=== PATIENT | female | born 1960 | race Caucasian/White ===

== ENCOUNTER 2018-08-07 17:06 | Emergency (ER) | payer MEDICAID ==
[~2018-08-07] VITALS: Ht 167.6 cm; Wt 58.0 kg
[~2018-08-07 17:06] MED LIST: BAC10T PO; CLON-527 PO; DIAZ5TAB PO; DIPH-186 PO; FLO0.4C PO; FLUO20CA39 PO; HYDR-4383 PO; NAPR-1154 PO; NITR100C6 PO; ONDA4TAB6 PO; OXYB5TAB11 PO; PHEN-716 PO; PHEN-786 PO; PHEN95TA29 PO; POLY119P2 PO; TAMS0.4C32 PO; TRAM200T4 PO; TRAM50TA2 PO
[2018-08-07 17:12] VITALS: BP 102/76
[2018-08-07] MEDS ORDERED: LIDOcaine 1.5% w/epinephrine 1:200,000 5ml ampul IJ ONE (17:45)
[2018-08-07] MEDS ORDERED: TETanus/Pertussis (Acell)/Diphther VAC/PF (Tdap-Adult) 0.5ml syringe IM ONE (17:45)
[2018-08-07] MEDS ORDERED: LIDOcaine 1% w/epiNEPHrine 1:200,000 30ml vial IJ ONE (18:00)
[2018-08-07] MEDS ORDERED: CEPH-572 PO (18:23)
[2018-08-07] MEDS ORDERED: SULF1TAB49 PO (18:23)
== END 2018-08-07 18:31 | disposition home or self-care (01) ==
LOC: ER 17:07
DX: L03.012 Cellulitis of left finger (principal); G89.29 Other chronic pain; Z79.899 Other long term (current) drug therapy; Z90.710 Acquired absence of both cervix and uterus
CPT/HCPCS: 10060; 90471; 90715; 99283; J3490

== ENCOUNTER 2020-06-17 17:50 | Emergency (ER) | payer MEDICAID ==
[~2020-06-17] VITALS: Ht 167.6 cm; Wt 61.4 kg
[~2020-06-17 17:50] MED LIST changes: -OXYB5TAB11 PO; +OXYB5TAB16 PO
[2020-06-17 18:01] VITALS: BP 126/74
[2020-06-17 18:17] LABS: CLARITY,URINE SLIGHTLY CLOUDY (Clear); COLOR,URINE YELLOW (Yellow); GLUCOSE, URINE NEGATIVE (Neg); KETONES,URINE NEGATIVE (Neg); LEUKOCYTE ESTERASE ,URINE TRACE (Neg); NITRITES, URINE NEGATIVE (Neg); OCCULT BLOOD,URINE MODERATE (Neg); PROTEIN,URINE NEGATIVE (Neg); UROBILINOGEN,URINE 0.2 E.U/dL (0.2-1.0)
[2020-06-17 18:18] LABS: UA COLLECTION TYPE CLN CATCH MIDSTREAM
[2020-06-17 18:24] LABS: MUCUS STRANDS FEW /LPF (Neg); SQUAMOUS EPITHELIAL CELL,UR MODERATE /LPF (FEW)
[2020-06-17 18:25] LABS: BACTERIA,URINE 1+ /HPF (Neg)
[2020-06-17 18:26] LABS: WBC,URINE 0-4 /HPF (0-4)
== END 2020-06-17 20:27 | disposition left against medical advice (07) ==
LOC: ER 17:51
DX: N30.10 Interstitial cystitis (chronic) without hematuria (principal); G89.29 Other chronic pain; M54.9 Dorsalgia, unspecified; F41.9 Anxiety disorder, unspecified; Z87.442 Personal history of urinary calculi; Z90.49 Acquired absence of other specified parts of digestive tract
CPT/HCPCS: 81001; 87088; 99283